=== PATIENT | female | born 1955 | race Caucasian/White ===

== ENCOUNTER 2017-02-24 20:52 | Emergency (ER) | payer SELFPAY ==
--- NOTE | 2017-02-24 21:43 | EDM.PDOC ---
ED HPI GENERAL MEDICAL PROBLEM - General Chief Complaint: General Stated Complaint: PT HAS TOOTHACHE Time Seen by Provider: 02/24/17 21:31 Source of Information: Reports: Patient History Limitations: Reports: No limitations - History of Present Illness INITIAL COMMENTS - FREE TEXT/NARRATIVE: History of present illness: [62-year-old female comes in presenting with complaints of dental caries and pain in her mouth on the area 17 - 21. Patient indicates she has no dental insurance and needs to get her teeth addressed but at this point she can't and came because she can't tolerate the pain anymore] Review of systems: As per history of present illness and below otherwise all systems reviewed and negative. Past medical history: As per history of present illness and as reviewed below otherwise noncontributory. Surgical history: As per history of present illness and as reviewed below otherwise noncontributory. Social history: No reported history of drug or alcohol abuse. Family history: As per history of present illness and as reviewed below otherwise noncontributory. Physical exam: HEENT: Atraumatic, normocephalic, pupils reactive, negative for conjunctival pallor or scleral icterus, mucous membranes moist, throat clear, neck supple, nontender, trachea midline. Lungs: Clear to auscultation, breath sounds equal bilaterally, chest nontender. Heart: S1S2, regular, negative for clicks, rubs, or JVD. Abdomen: Soft, nondistended, nontender. Negative for masses or hepatosplenomegaly. Negative for costovertebral tenderness. Pelvis: Stable nontender. Genitourinary: Deferred. Rectal: Deferred. Extremities: Atraumatic, negative for cords or calf pain. Neurovascular unremarkable. Neuro: Awake, alert, oriented. Cranial nerves II through XII unremarkable. Cerebellum unremarkable. Motor and sensory unremarkable throughout. Exam nonfocal. Global assessment is benign save obvious multiple areas of decay and fractured teeth throughout the entire mouth black nebs at the gumline and it is swollen and erythematous in the region complained about which is 17-21. Diagnostics: [] Therapeutics: [] Impression: [Dental caries/dental abscess/fractured teeth] Plan: [Antibiotics brief run of pain medicine] Definitive disposition and diagnosis as appropriate pending reevaluation and review of above. dental pain Pain Score (Numeric/FACES): 8 - Related Data Allergies Allergy/AdvReac Type Severity Reaction Status Date / Time Penicillins Allergy Severe Difficulty Verified 02/24/17 21:23 Breathing hydrocodone Allergy Difficulty Verified 02/24/17 21:23 Breathing morphine Allergy Severe Shortness Uncoded 02/24/17 21:23 of Breath Home Meds: Home Meds Celecoxib [CeleBREX] 200 mg PO DAILY 10/19/14 [History] atoMOXetine [Strattera] 60 mg PO DAILY 07/12/15 [History] Acetaminophen [Tylenol Arthritis Pain] 2 tab PO DAILY PRN 01/21/16 [History] Docusate Sodium/Sennosides [Senna Plus] 1 tab PO DAILY 08/26/16 [History] Rivaroxaban [Xarelto] 10 mg PO DAILY 08/26/16 [History] traMADol HCl [Tramadol HCl] 1 tab PO Q6HR 08/26/16 [History] Past Medical History - Past Health History Medical/Surgical History: Denies Medical/Surgical History HEENT History: Reports: None Cardiovascular History: Reports: None Respiratory History: Reports: Asthma Other Respiratory History: pneumonia. 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 compressed disc Psychiatric History: Reports: ADHD, Anxiety Endocrine/Metabolic History: Reports: None Hematologic History: Reports: B12 deficiency, Blood transfusion(s) Immunologic History: Reports: None Oncologic (Cancer) History: Reports: None Dermatologic History: Reports: None - Infectious Disease History Infectious Disease History: Reports: None Other Infectious Disease History: staph infection - Past Surgical History HEENT Surgical History: Reports: Oral surgery Respiratory Surgical History: Reports: None GI Surgical History: Reports: Appendectomy, Other (see below) Other GI Surgeries/Procedures: lap band 10 years ago Female Surgical History: Reports: section Musculoskeletal Surgical History: Reports: Arthroscopic knee, Other (see below) Other Musculoskeletal Surgeries/Procedures:: bilateral knee surgery for torn ligaments. right knee replacement Social & Family History - Family History Family Medical History: Noncontributory Cardiac: Reports: Bypass, CAD Endocrine/Metabolic: Reports: Diabetes, type I, Diabetes, type II - Tobacco Use Smoking Status *Q: Never Smoker Years of Tobacco use: 10 Packs/Tins Daily: 0.5 Used Tobacco, but Quit: Yes Month Tobacco Last Used: . Second Hand Smoke Exposure: Yes - Caffeine Use Caffeine Use: Reports: Soda - Alcohol Use Days Per Week of Alcohol Use: 0 - Recreational Drug Use Recreational Drug Use: No ED ROS GENERAL - Review of Systems Review Of Systems: See Below (See history of present illness) ED EXAM, GENERAL - Physical Exam Exam: See Below ([facility]) Course - Vital Signs Last Recorded V/S: Last Vital Signs Temp 36.6 C 02/24/17 21:15 Pulse 114 H 02/24/17 21:15 Resp 16 02/24/17 21:15 BP 178/88 H 02/24/17 21:15 Pulse Ox 96 02/24/17 21:15 Departure - Departure Time of Disposition: 21:43 Disposition: Home, Self-Care 01 Condition: good Clinical Impression: Dental abscess Forms: ED Department Discharge Additional Instructions: The following information is given to patients seen in the emergency department who are being discharged to home. This information is to outline your options for follow-up care. We provide all patients seen in our emergency department with a follow-up referral. The need for follow-up, as well as the timing and circumstances, are variable depending upon the specifics of your emergency department visit. If you don't have a primary care physician on staff, we will provide you with a referral. We always advise you to contact your personal physician following an emergency department visit to inform them of the circumstance of the visit and for follow-up with them and/or the need for any referrals to a consulting specialist. The emergency department will also refer you to a specialist when appropriate. This referral assures that you have the opportunity for follow-up care with a specialist. All of these measure are taken in an effort to provide you with optimal care, which includes your follow-up. Under all circumstances we always encourage you to contact your private physician who remains a resource for coordinating your care. When calling for follow-up care, please make the office aware that this follow-up is from your recent emergency room visit. If for any reason you are refused follow-up, please contact the [facility] Emergency Department at and asked to speak to the emergency department charge nurse. Take medication as directed Followup with primary care provider one to 2 days Return to ED as needed as discussed
[2017-02-25 03:21] VITALS: BP 184/85
== END 2017-02-24 22:00 | disposition home or self-care (01) ==
LOC: MW.ED 20:52
DX: K02.9 Dental caries, unspecified (principal); E11.9 Type 2 diabetes mellitus without complications; Z88.0 Allergy status to penicillin; Z88.5 Allergy status to narcotic agent; Z88.8 Allergy status to other drugs, medicaments and biological substances; Z79.899 Other long term (current) drug therapy
CPT/HCPCS: 99282; 99283

== ENCOUNTER 2017-12-10 22:18 | Emergency (ER) | payer SELFPAY ==
[2017-12-10] MEDS ORDERED: Ketorolac 30 MG/ML SDV IM ONE (22:31)
--- NOTE | 2017-12-10 22:44 | EDM.PDOC ---
ED HPI GENERAL MEDICAL PROBLEM - General Chief Complaint: Lower Extremity Injury/Pain Stated Complaint: PT HURT LT KNEE Time Seen by Provider: 12/10/17 22:41 - History of Present Illness INITIAL COMMENTS - FREE TEXT/NARRATIVE: HISTORY AND PHYSICAL: History of present illness: Patient's a 62-year-old white female presents with concern of left knee pain this is been a chronic intermittent problem she has had prior episodes in the past and has seen orthopedic surgery for this. No fever chills nausea vomiting she denies trauma or any other concern Review of systems: As per history of present illness and below otherwise all systems reviewed and negative. Past medical history: As per history of present illness and as reviewed below otherwise noncontributory. Surgical history: As per history of present illness and as reviewed below otherwise noncontributory. Social history: No reported history of drug or alcohol abuse. Family history: As per history of present illness and as reviewed below otherwise noncontributory. Physical exam: HEENT: Atraumatic, normocephalic, pupils reactive, negative for conjunctival pallor or scleral icterus, mucous membranes moist, throat clear, neck supple, nontender, trachea midline. Lungs: Clear to auscultation, breath sounds equal bilaterally, chest nontender. Heart: S1S2, regular, negative for clicks, rubs, or JVD. Abdomen: Soft, nondistended, nontender. Negative for masses or hepatosplenomegaly. Negative for costovertebral tenderness. Pelvis: Stable nontender. Genitourinary: Deferred. Rectal: Deferred. Extremities: Atraumatic, negative for cords or calf pain. Neurovascular unremarkable. No gross effusion knee is grossly stable bilateral Neuro: Awake, alert, oriented. Cranial nerves II through XII unremarkable. Cerebellum unremarkable. Motor and sensory unremarkable throughout. Exam nonfocal. Diagnostics: X-ray left knee Therapeutics: Toradol 30 mg IM Impression: #1 chronic intermittent left knee pain Definitive disposition and diagnosis as appropriate pending reevaluation and review of above. left knee Pain Score (Numeric/FACES): 8 - Related Data Allergies Allergy/AdvReac Type Severity Reaction Status Date / Time Penicillins Allergy Severe Difficulty Verified 12/10/17 22:28 Breathing hydrocodone Allergy Difficulty Verified 12/10/17 22:28 Breathing morphine Allergy Severe Shortness Uncoded 12/10/17 22:28 of Breath Home Meds: Home Meds Celecoxib [CeleBREX] 200 mg PO DAILY 10/19/14 [History] atoMOXetine [Strattera] 60 mg PO DAILY 07/12/15 [History] Acetaminophen [Tylenol Arthritis Pain] 2 tab PO DAILY PRN 01/21/16 [History] Docusate Sodium/Sennosides [Senna Plus] 1 tab PO DAILY 08/26/16 [History] Rivaroxaban [Xarelto] 10 mg PO DAILY 08/26/16 [History] traMADol HCl [Tramadol HCl] 1 tab PO Q6HR 08/26/16 [History] Past Medical History - Past Health History Medical/Surgical History: Denies Medical/Surgical History HEENT History: Reports: None Cardiovascular History: Reports: None Respiratory History: Reports: Asthma Other Respiratory History: pneumonia. 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 compressed disc Psychiatric History: Reports: ADHD, Anxiety Endocrine/Metabolic History: Reports: None Hematologic History: Reports: B12 Deficiency, Blood Transfusion(s) Immunologic History: Reports: None Oncologic (Cancer) History: Reports: None Dermatologic History: Reports: None - Infectious Disease History Infectious Disease History: Reports: Measles Other Infectious Disease History: staph infection - Past Surgical History HEENT Surgical History: Reports: Oral Surgery Respiratory Surgical History: Reports: None GI Surgical History: Reports: Appendectomy, Other (See Below) Female Surgical History: Reports: Section Musculoskeletal Surgical History: Reports: Arthroscopic Knee Other Musculoskeletal Surgeries/Procedures:: total knee replacement - right Social & Family History - Family History Family Medical History: Noncontributory Cardiac: Reports: Bypass, CAD Endocrine/Metabolic: Reports: Diabetes, Type I, Diabetes, type II - Tobacco Use Smoking Status *Q: Never Smoker Years of Tobacco use: 10 Packs/Tins Daily: 0.5 Used Tobacco, but Quit: Yes Month Tobacco Last Used: . Second Hand Smoke Exposure: Yes - Caffeine Use Caffeine Use: Reports: Soda - Alcohol Use Days Per Week of Alcohol Use: 0 - Recreational Drug Use Recreational Drug Use: No Review of Systems - Review of Systems Review Of Systems: ROS reveals no pertinent complaints other than HPI. ED EXAM, GENERAL - Physical Exam Exam: See Below (See dictation) Course - Vital Signs Last Recorded V/S: Last Vital Signs Temp 36.1 C 12/10/17 22:28 Pulse 105 H 12/10/17 22:28 Resp 18 12/10/17 22:28 BP 145/88 H 12/10/17 22:28 Pulse Ox 96 12/10/17 22:28 - Orders/Labs/Meds Orders: Active Orders 24 hr Category Date Time Status Knee 1V or 2V Lt [CR] Stat Exams 12/10/17 22:31 Ordered Meds: Medications Discontinued Medications Generic Name Dose Route Start Last Admin Trade Name Freq PRN Reason Stop Dose Admin Ketorolac Tromethamine 30 mg 12/10/17 22:31 12/10/17 22:40 Toradol IM 12/10/17 22:32 30 mg ONETIME ONE Administration Departure - Departure Time of Disposition: 22:43 Disposition: Home, Self-Care 01 Condition: Good Clinical Impression: Left knee pain, Degenerative joint disease - Discharge Information Referrals: PCP,None [Primary Care Provider] - Additional Instructions: The following information is given to patients seen in the emergency department who are being discharged to home. This information is to outline your options for follow-up care. We provide all patients seen in our emergency department with a follow-up referral. The need for follow-up, as well as the timing and circumstances, are variable depending upon the specifics of your emergency department visit. If you don't have a primary care physician on staff, we will provide you with a referral. We always advise you to contact your personal physician following an emergency department visit to inform them of the circumstance of the visit and for follow-up with them and/or the need for any referrals to a consulting specialist. The emergency department will also refer you to a specialist when appropriate. This referral assures that you have the opportunity for followup care with a specialist. All of these measure are taken in an effort to provide you with optimal care, which includes your followup. Under all circumstances we always encourage you to contact your private physician who remains a resource for coordinating your care. When calling for followup care, please make the office aware that this follow-up is from your recent emergency room visit. If for any reason you are refused follow-up, please contact the [facility] emergency department at and asked to speak to the emergency department charge nurse. [facility] [address], [address] [place] [address] Motrin/Tylenol as directed follow-up orthopedic clinic called schedule routine appointment return as needed as discussed - My Orders Last 24 Hours: My Active Orders 12/10/17 22:31 Knee 1V or 2V Lt [CR] Stat - Assessment/Plan Last 24 Hours: My Active Orders 12/10/17 22:31 Knee 1V or 2V Lt [CR] Stat
[2017-12-10 23:37] VITALS: BP 140/78
--- NOTE | 2017-12-11 10:04 | CR ---
EXAM DATE: 12/10/17 PATIENT'S AGE: 62 Patient: NOLVIA DUMONT Facility: [place], [place] Site . Site : 1955 Study: XRay Knee Left [id number] 11:09:04 PM Ordering Physician: Doctor Mcgovern Final Report: INDICATION: Pain. No injury. COMPARISON: None. FINDINGS/IMPRESSION: Left knee, 2 views. No fracture or malalignment. Moderate tricompartmental osteoarthritis of the left knee, most pronounced in the medial joint compartment. Suggestion of small joint effusion in the suprapatellar bursa. Dictated by Wale Remy MD @ 12/10/2017 11:21:16 PM Dictated by: Wale Remy MD @ 12/10/2017 23:21:32 (Electronic Signature) Report Signed by Proxy. [email or web address]
== END 2017-12-10 23:36 | disposition home or self-care (01) ==
LOC: MW.ED 22:18
DX: M17.12 Unilateral primary osteoarthritis, left knee (principal); Z88.0 Allergy status to penicillin; Z88.5 Allergy status to narcotic agent; Z79.899 Other long term (current) drug therapy; Z87.891 Personal history of nicotine dependence
CPT/HCPCS: 73560; 96372; 99283; J1885

== ENCOUNTER 2022-05-06 16:31 | Emergency (ER) | payer MEDICARE, OTHER ==
[2022-05-06] MEDS ORDERED: Lidocaine 1% 5 ML VIAL INJECT ONE (19:35)
[2022-05-06] MEDS ORDERED: Benzocaine 20% Topical Spray UD MUCMEM ONE (19:35)
[2022-05-06] MEDS ORDERED: Lidocaine 2% Viscous Solution 15 ML UD PO ONE (19:35)
[2022-05-06] MEDS ORDERED: Clindamycin HCl 150 MG Cap PO ONE (20:17)
[2022-05-06 20:43] VITALS: BP 176/84; PULSE 76
== END 2022-05-06 20:42 | disposition home or self-care (01) ==
LOC: MW.ED 16:31
DX: K04.7 Periapical abscess without sinus (principal); I10 Essential (primary) hypertension; Z88.0 Allergy status to penicillin; Z88.5 Allergy status to narcotic agent
CPT/HCPCS: 41800; 99282; A9270; 10060

== ENCOUNTER 2024-06-22 09:35 | Day surgery (SDC) | payer MEDICAID, MEDICARE, OTHER ==
[~2024-06-22 09:35] MED LIST: Sodium Chloride 0.9% 10 ML Syringe FLUSH PRN; Sodium Chloride 0.9% 2.5 ML Syringe FLUSH PRN; Sodium Chloride 0.9% 20 ML SDV IV PRN; propofoL 50 ML ONE
[2024-06-22] MEDS: Lactated Ringers 1,000 ML IV SCH (09:53)
[2024-06-22 11:10] VITALS: BP 150/79; PULSE 85
== END 2024-06-22 10:55 | disposition home or self-care (01) ==
LOC: MW.SDS 09:35
PROVIDERS: ATTEND Surgery
DX: Z12.11 Encounter for screening for malignant neoplasm of colon (principal); Z86.010 Personal history of colon polyps; K21.9 Gastro-esophageal reflux disease without esophagitis; J45.909 Unspecified asthma, uncomplicated; F32.A Depression, unspecified; Z79.899 Other long term (current) drug therapy; Z88.0 Allergy status to penicillin; Z91.040 Latex allergy status; Z88.5 Allergy status to narcotic agent
CPT/HCPCS: G0105; J2704; J7120

== ENCOUNTER 2025-07-07 19:14 | Emergency (ER) | payer MEDICARE, OTHER ==
[2025-07-07] MEDS: Alum Hydrox/Mag Hydrox/Simeth 15 ML, Lidocaine 2% 5 ML PO ONE (20:04)
[2025-07-07 20:14] LABS: BASOPHILS ABSOLUTE AUTO 0.04 K/uL (0.00-0.20); BASOPHILS PERCENT AUTO 0.3 % (0.0-1.0); EOSINOPHILS ABSOLUTE AUTO 0.07 K/uL (0.00-0.45); EOSINOPHILS PERCENT AUTO 0.6 % (0.0-6.0); IMMATURE GRAN ABSOLUTE AUTO 0.03 K/uL (0.00-0.05); IMMATURE GRAN PERCENT AUTO 0.3 % (0.0-0.4); LYMPHOCYTES ABSOLUTE AUTO 2.27 K/uL (1.00-4.80); LYMPHOCYTES PERCENT AUTO 19.3 % (24.0-44.0); MEAN PLATELET VOLUME 10.5 fL (9.4-12.3); MONOCYTES ABSOLUTE AUTO 0.77 K/uL (0.00-0.80); MONOCYTES PERCENT AUTO 6.5 % (0.0-8.0); NEUTROPHILS ABSOLUTE AUTO 8.59 K/uL (1.80-7.70); NEUTROPHILS PERCENT AUTO 73.0 % (41.0-71.0); NRBC ABSOLUTE 0.00 K/uL (0.00-0.02); NRBC PERCENT 0.0 /100WBC (0.0-0.2); PLATELET COUNT,PLT 322 K/uL (150-400); RED BLOOD CELL COUNT 4.94 M/uL (4.10-5.30); WHITE BLOOD CELL COUNT,WBC 11.77 K/uL (3.9-11.3)
[2025-07-07 20:43] LABS: A/G RATIO 0.9 (0.9-1.6); ALANINE AMINOTRANSFERASE,ALT 50.0 IU/L (14-63); ASPARTATE AMNIOTRANSFERASE,AST 34.0 IU/L (15-37); BILIRUBIN TOTAL 0.6 mg/dL (0.2-1.0); BLOOD UREA NITROGEN,BUN 16.0 mg/dL (7.0-18.0); CARBON DIOXIDE,CO2 27.3 mmol/L (21.0-32.0); CHLORIDE,CL 101.0 mmol/L (98-107); CREATININE 1.0 mg/dL (0.6-1.0); EST CRCL DRUG DOSING (CG) 43.92 mL/min; GLUCOSE RANDOM 149.0 mg/dL (74-106); POTASSIUM,K 3.4 mmol/L (3.5-5.1); PROTEIN TOTAL,TP 7.8 g/dL (6.4-8.2); SODIUM,NA 138.0 mmol/L (136-145)
[2025-07-07 20:47] LABS: ESTIMATED GFR 61.0 mL/min (>60)
[2025-07-07] MEDS: Pantoprazole 40 MG in Sodium Chloride 0.9% 10 ML IVPUSH ONE (21:38)
[2025-07-07 22:34] VITALS: BP 163/74
[2025-07-07 22:48] VITALS: PULSE 85
== END 2025-07-07 22:46 | disposition home or self-care (01) ==
LOC: MW.ED 19:14
DX: K85.90 Acute pancreatitis without necrosis or infection, unspecified (principal); I10 Essential (primary) hypertension; K21.9 Gastro-esophageal reflux disease without esophagitis; Z88.0 Allergy status to penicillin; Z91.040 Latex allergy status; Z88.5 Allergy status to narcotic agent; Z79.899 Other long term (current) drug therapy
CPT/HCPCS: 36415; 71045; 80053; 83690; 84484; 85025; 93005; 96361; 96374; 99285; A9270; J2470; J7030; 93010; 99284